=== PATIENT | male | born 1950 | race Caucasian/White ===

== ENCOUNTER 2024-03-02 13:15 | Emergency (ER) | payer MEDICARE, OTHER, MEDICAID ==
[~2024-03-02] VITALS: Ht 182.9 cm; Wt 119.5 kg
[~2024-03-02 13:15] MED LIST: ASPI-611 PO; Atenolol PO; FINA5TAB11 PO; IBUP-1984 PO; Lisinopril PO; MAGN200T5 PO; PRAV20TA4 PO
[2024-03-02 13:34] VITALS: TEMP 98.1
[2024-03-02 14:41] LABS: BASOPHILS % (AUTO) 0.4 % (0-1); EOSINOPHILS # (AUTO) 0.1 X10'3 (0-0.9); EOSINOPHILS % (AUTO) 1.3 % (0-6); HEMATOCRIT 47.3 % (42.0-52.0); HEMOGLOBIN 15.8 g/dl (14.0-17.9); LYMPHOCYTES # (AUTO) 1.7 X10'3 (1.1-4.8); LYMPHOCYTES % (AUTO) 26.3 % (21-51); MEAN CORPUSCULAR HGB CONC 33.5 g/dL (33.0-36.5); MEAN CORPUSCULAR VOLUME 83.6 FL (78-98); MEAN PLATELET VOLUME 7.8 FL (7.4-10.4); MONOCYTES # (AUTO) 0.6 X10'3 (0-0.9); MONOCYTES % (AUTO) 9.1 % (2-12); NEUTROPHILS # (AUTO) 4.2 X10'3 (1.8-7.7); NEUTROPHILS % (AUTO) 62.9 % (42-75); PLATELET COUNT 150 X10'3 (140-440); RED BLOOD COUNT 5.66 X10'6 (4.70-6.10); RED CELL DISTRIBUTION WIDTH 15.1 % (11.5-14.5); WHITE BLOOD COUNT 6.6 X10'3 (4.5-11.0)
[2024-03-02 14:48] LABS: D-DIMER 0.41 MG/L FEU (0-0.50)
[2024-03-02 15:02] LABS: ALANINE AMINOTRANSFERASE 16 U/L (12-78); ALBUMIN 3.5 G/DL (3.4-5.0); ALBUMIN/GLOBULIN RATIO 0.9 (1.1-1.5); ALKALINE PHOSPHATASE 60 IU/L (46-116); ANION GAP 6 (8-16); ASPARTATE AMINO TRANSFERASE 23 U/L (10-37); BILIRUBIN,TOTAL 0.6 MG/DL (0.1-1.0); BLOOD UREA NITROGEN 21 MG/DL (7-18); BUN/CREATININE RATIO 18.4 (10.0-20.0); CALCIUM 9.2 MG/DL (8.5-10.1); CHLORIDE 106 MMOL/L (99-107); CREATININE 1.14 MG/DL (0.60-1.10); GLUCOSE 108 MG/DL (70-104); POTASSIUM 3.7 MMOL/L (3.5-5.1); SODIUM 139 MMOL/L (135-145); TOTAL CARBON DIOXIDE 26.9 MMOL/L (24-32); TOTAL PROTEIN 7.4 G/DL (6.4-8.2); eCRCL 61 ML/MIN; eGFR 63 ML/MIN
[2024-03-02 15:14] LABS: CREATINE KINASE 69 U/L (39-308); CREATINE KINASE MB 0.8 ng/ml (0.3-3.6); PHOSPHORUS 2.6 MG/DL (2.3-4.5); PRO BRAIN NATRIURETIC PEPTIDE 56 PG/ML (0-450)
[2024-03-02 17:33] VITALS: BP 152/64; PULSE 73; RESP 17; O2SAT 98
== END 2024-03-02 17:34 | disposition home or self-care (01) ==
LOC: ER 13:16
DX: T82.199A Other mechanical complication of unspecified cardiac device, initial encounter (principal); Z79.82 Long term (current) use of aspirin; Z79.1 Long term (current) use of non-steroidal anti-inflammatories (NSAID); Z79.899 Other long term (current) drug therapy
CPT/HCPCS: 36415; 71045; 80053; 82550; 82553; 83735; 83880; 84100; 84484; 85025; 85379; 93005; 99285